=== PATIENT | male | born 1950 | race Caucasian/White ===

== ENCOUNTER 2025-01-12 14:18 | Inpatient (IN) | payer MEDICARE ==
[~2025-01-12] VITALS: Ht 172.7 cm; Wt 81.6 kg
[2025-01-12 14:37] VITALS: BP 115/58
[2025-01-12 16:04] LABS: *BILIRUBIN,URIN NEGATIVE (NEGATIVE); *CLARITY,URINE CLEAR (CLEAR); *COLOR,URINE YELLOW (YELLOW); *KETONES,URINE NEGATIVE (NEGATIVE); *PROTEIN,URINE NEGATIVE (NEGATIVE); *UROBILINOGEN,URINE 0.2 E.U./dl (NORMAL); LEUKOCYTE ESTERASE ,URINE NEGATIVE (NEGATIVE); NITRITE, URINE NEGATIVE (NEGATIVE); UGLUCOSE NEGATIVE (NEGATIVE)
[2025-01-12 16:06] LABS: *BLOOD, URINE NEGATIVE (NEGATIVE)
[2025-01-12] MEDS ORDERED: ATOR20TA PO (18:23)
[2025-01-12] MEDS ORDERED: HYDR5TAB13 PO ×2 (18:23→18:26)
[2025-01-12] MEDS ORDERED: MIRT7.5T10 PO (18:27)
[2025-01-12] MEDS ORDERED: DIVA500T54 PO (18:27)
[2025-01-12] MEDS ORDERED: TAMS-3 PO (18:27)
[2025-01-12] MEDS ORDERED: OLAN5TAB70 PO (18:28)
[2025-01-12] MEDS ORDERED: PANT40TA49 PO (18:28)
[2025-01-12] MEDS ORDERED: MULT-225 PO (18:29)
[2025-01-12] MEDS ORDERED: MELA3CAP2 PO (18:29)
[2025-01-12] MEDS ORDERED: OLAN5TAB3 PO (18:29)
[2025-01-12 20:00] VITALS: BP 149/95; TEMP 97.8; O2SAT 98
[2025-01-12] MEDS: ATORVASTATIN 20 MG TABLET PO SCH (21:36)
[2025-01-12] MEDS: TAMSULOSIN HCL 0.4 MG CAP.SR.24H PO SCH (21:36)
[2025-01-12] MEDS: MELATONIN 3 MG TABLET PO SCH (21:39)
[2025-01-12] MEDS ORDERED: HYDROCORTISONE 10 MG TABLET ONE (21:42)
[2025-01-12] MEDS: HYDROCORTISONE 10 MG TABLET PO SCH (21:47)
[2025-01-12] MEDS ORDERED: ACETAMINOPHEN 325 MG TABLET PO PRN (23:30)
[2025-01-12] MEDS ORDERED: MAG HYDROX/AL HYDROX/SIMETH 30 ML LIQUID UDC PO PRN (23:30)
[2025-01-12] MEDS ORDERED: ZOLPIDEM 5 MG TABLET PO PRN (23:30)
[2025-01-12] MEDS ORDERED: QUETIAPINE FUMARATE 25 MG TABLET PO PRN (23:30)
[2025-01-12] MEDS: BLOOD SUGAR DIAGNOSTIC 1 EACH STRIP VI ONE (23:37)
[2025-01-12] MEDS: QUETIAPINE FUMARATE 25 MG TABLET PO ONE (23:53)
[2025-01-12] MEDS: ZOLPIDEM 5 MG TABLET PO PRN (23:54)
[2025-01-13] MEDS ORDERED: IPRA3AMP22 IH (03:51)
[2025-01-13] MEDS ORDERED: POLY454P5 PO (03:58)
[2025-01-13 08:22] VITALS: BP 138/79; TEMP 97.8; O2SAT 98
[2025-01-13] MEDS: PANTOPRAZOLE SODIUM 40 MG TABLET.DR PO SCH (09:33)
[2025-01-13] MEDS: MULTIVITAMINS,THERAPEUTIC TABLET PO SCH (09:33)
[2025-01-13] MEDS: HYDROCORTISONE 10 MG TABLET PO SCH (09:34)
[2025-01-13] MEDS: DIVALPROEX 125 MG TABLET.DR PO SCH (14:13)
[2025-01-13] MEDS: BENZTROPINE MESYLATE 0.5 MG TABLET PO SCH (16:24)
[2025-01-13 16:38] VITALS: BP 119/69; TEMP 97.8; O2SAT 98
[2025-01-13 20:00] VITALS: BP 117/70; TEMP 97.4; O2SAT 96
[2025-01-13] MEDS: OLANZAPINE 2.5 MG TABLET PO SCH (20:28)
[2025-01-14 07:55] VITALS: BP 100/55; TEMP 97.7; O2SAT 97
[2025-01-14 08:22] LABS: PLATELET COUNT (AUTO) 152 K/uL (152-348); RED BLOOD CELL COUNT(AUTO) 4.65 MIL/uL (4.06-5.63); RED CELL DISTRIBUTION WIDTH 13.9 % (12.1-16.2); WHITE BLOOD COUNT (AUTO) 7.7 K/uL (3.6-10.2)
[2025-01-14 09:29] LABS: ASPARTATE AMINOTRANSFERASE 13 U/L (15-37); CREATININE 1.0 mg/dL (0.6-1.3); SODIUM SERUM 143 mmol/L (136-145); TOTAL PROTEIN, SERUM 7.1 g/dL (6.4-8.2); UREA NITROGEN, BLOOD 19 mg/dL (7-18)
[2025-01-14 16:02] VITALS: BP 116/62; TEMP 97.7; O2SAT 97
[2025-01-14 20:00] VITALS: BP 98/59; TEMP 97.4; O2SAT 96
[2025-01-15] MEDS: LEVOTHYROXINE SODIUM 25 MCG TABLET PO SCH (06:31)
[2025-01-15 08:00] VITALS: BP 122/57; TEMP 97.8; O2SAT 98
[2025-01-15 16:00] VITALS: BP 115/55; TEMP 97.6; O2SAT 98
[2025-01-15] MEDS: BENZTROPINE MESYLATE 0.5 MG TABLET PO SCH (16:13)
[2025-01-15 19:00] VITALS: BP 98/53; TEMP 97.9; O2SAT 100
[2025-01-16 08:07] VITALS: BP 120/63; TEMP 97.7; O2SAT 98
[2025-01-16] MEDS ORDERED: DIVALPROEX 125 MG TABLET.DR PO SCH (14:00)
[2025-01-16] MEDS: OLANZAPINE 2.5 MG TABLET PO SCH (14:28)
[2025-01-16] MEDS: DIVALPROEX 250 MG TABLET.DR PO SCH (14:28)
[2025-01-16 16:38] VITALS: BP 113/60; TEMP 97.7; O2SAT 95
[2025-01-16] MEDS: MAGNESIUM HYDROXIDE 30 ML LIQUID UDC PO PRN (18:40)
[2025-01-16 19:58] VITALS: BP 98/51; TEMP 98; O2SAT 97
[2025-01-17 07:48] VITALS: BP 107/36; TEMP 98; O2SAT 98
[2025-01-17 16:47] VITALS: BP 106/71; TEMP 97.4; O2SAT 100
[2025-01-17 20:00] VITALS: BP 100/49; TEMP 97.6; O2SAT 98
[2025-01-18 08:52] VITALS: BP 127/61; TEMP 98; O2SAT 98
[2025-01-18 16:39] VITALS: BP 130/61; TEMP 97.6; O2SAT 98
[2025-01-18 22:03] VITALS: BP 106/53; TEMP 97.7; O2SAT 98
[2025-01-19 08:15] VITALS: BP 127/74; TEMP 98.3; O2SAT 98
[2025-01-19] MEDS: DIVALPROEX 125 MG TABLET.DR PO SCH (14:35)
[2025-01-19] MEDS: OLANZAPINE 5 MG TABLET PO SCH (14:35)
[2025-01-19 16:14] VITALS: BP 117/76; TEMP 97.6; O2SAT 98
[2025-01-19 20:24] VITALS: BP 100/52; TEMP 97.4; O2SAT 97
[2025-01-20 08:28] VITALS: BP 118/74; TEMP 98; O2SAT 98
[2025-01-20] MEDS ORDERED: DIVALPROEX 125 MG TABLET.DR PO SCH (14:00)
[2025-01-20] MEDS: DIVALPROEX 500 MG TABLET.DR PO SCH (14:15)
[2025-01-20 16:39] VITALS: BP 117/70; TEMP 97.6; O2SAT 98
[2025-01-20 19:55] VITALS: BP 125/71; TEMP 97.2; O2SAT 98
[2025-01-21 07:30] VITALS: BP 120/70; TEMP 97.5; O2SAT 100
[2025-01-21] MEDS: OLANZAPINE 5 MG TABLET PO SCH ×2 (13:40→20:20)
[2025-01-21 15:48] VITALS: BP 104/57; TEMP 97.1; O2SAT 96
[2025-01-21 20:00] VITALS: BP 98/56; TEMP 97.5; O2SAT 98
[2025-01-22 08:08] VITALS: BP 104/59; TEMP 98; O2SAT 98
[2025-01-22] MEDS: PANTOPRAZOLE SODIUM 40 MG TABLET.DR PO SCH (08:45)
[2025-01-22 15:12] VITALS: BP 110/76; TEMP 98; O2SAT 96
[2025-01-22 21:34] VITALS: BP 113/59; TEMP 87.5; O2SAT 100
[2025-01-23 09:10] VITALS: BP 117/63; TEMP 98.2
[2025-01-23 15:48] VITALS: BP 119/68; TEMP 98; O2SAT 96
[2025-01-23] MEDS: CLONAZEPAM 0.5 MG TABLET PO SCH (18:49)
[2025-01-23 20:11] VITALS: BP 124/66; TEMP 97.9; O2SAT 96
[2025-01-24 08:08] VITALS: BP 101/56; TEMP 98; O2SAT 96
[2025-01-24] MEDS: OLANZAPINE 5 MG TABLET PO SCH (09:31)
[2025-01-24 15:23] VITALS: BP 116/69; TEMP 98; O2SAT 98
[2025-01-24 20:36] VITALS: BP 122/64; TEMP 97.9; O2SAT 98
[2025-01-25 08:55] VITALS: BP 127/69; TEMP 98; O2SAT 98
[2025-01-25 16:44] VITALS: BP 120/61; TEMP 98; O2SAT 96
[2025-01-25 20:55] VITALS: BP 106/42; TEMP 98.7; O2SAT 96
[2025-01-26 09:06] VITALS: BP 127/79; TEMP 98; O2SAT 98
[2025-01-26] MEDS: CLONAZEPAM 0.5 MG TABLET PO SCH (13:01)
[2025-01-26 16:20] VITALS: BP 120/71; TEMP 98; O2SAT 96
== END 2025-01-26 17:56 | DRG 885 ==
LOC: ER 14:18 → GPS 17:03
PROVIDERS: ADMIT Psychiatry & Neurology Psychiatry; ATTEND Internal Medicine
DX: F25.9 Schizoaffective disorder, unspecified (principal); F03.911 Unspecified dementia, unspecified severity, with agitation; F03.92 Unspecified dementia, unspecified severity, with psychotic disturbance; F03.93 Unspecified dementia, unspecified severity, with mood disturbance; E66.9 Obesity, unspecified; Z68.27 Body mass index [BMI] 27.0-27.9, adult; E78.5 Hyperlipidemia, unspecified; Z79.899 Other long term (current) drug therapy; N40.0 Benign prostatic hyperplasia without lower urinary tract symptoms; Z91.199 Patient's noncompliance with other medical treatment and regimen due to unspecified reason; G47.00 Insomnia, unspecified; Z85.46 Personal history of malignant neoplasm of prostate
CPT/HCPCS: 36415; 80164; 83735; 84100; 84153; 84443; 85025; 87086; 93005; J3490